=== PATIENT | female | born 1950 | race Caucasian/White ===

== ENCOUNTER → 2016-12-11 | Outpatient (CLI) | payer MEDICARE, OTHER ==
[~2016-12-11] MED LIST: ALBU6.7H4 IH; FLUT1DIS IH; MONT10TA15 PO
--- NOTE | 2016-12-11 13:20 | DI ---
Indication: ITS.REASON: R53.83 FATIGUE; R63.0; C50.919; R74.8; R63.4 PROCEDURE: NM BONE SCAN, WHOLE BODY: Encounter: Subsequent Comparison: None Technique: 27.3 mCi of Tc-99m MDP was administered intravenously. Anterior and posterior planar whole-body and spot images were obtained. FINDINGS: The scan demonstrates the expected normal biodistribution for the radiotracer. There is homogeneous uptake of the radiopharmaceutical throughout the axial and appendicular skeleton and bony calvarium with the exception of degenerative uptake in the shoulder and knee joints bilaterally. There is no abnormal radiotracer uptake to suggest bony metastasis. There is symmetrical uptake in the region of the kidneys bilaterally. There is mild S shaped scoliosis of the thoracolumbar. IMPRESSION: 1. No evidence of metastatic disease to the skeleton. 2. Degenerative uptake is seen in the shoulder and knee joints bilaterally. 3. Mild S shaped scoliosis of the thoracolumbar spine. .
== END ==
LOC: IMA 09:29
PROVIDERS: ATTEND Physician Assistant
DX: M89.8X1 Other specified disorders of bone, shoulder (principal); M89.8X6 Other specified disorders of bone, lower leg; Z85.3 Personal history of malignant neoplasm of breast; R53.83 Other fatigue; R63.0 Anorexia; R74.8 Abnormal levels of other serum enzymes; R63.4 Abnormal weight loss

== ENCOUNTER → 2016-12-23 | Outpatient (CLI) | payer MEDICARE, OTHER ==
[~2016-12-23] MED LIST changes: +IOHEXOL 300 MG/ML 100ml INJECTION ONE; +NORMAL SALINE 100 ML ONE; +ONDA-55 PO; +SALINE FLUSH 10ml SYRINGE ONE
--- NOTE | 2016-12-23 12:30 | DI ---
Indication: ITS.REASON: R53.83 FATIGUE, R63.0 ANOREXIA, R63.4 ABNORMAL WEIGHT LOSS PROCEDURE: CT ABD/PELVIS W/CONTRAST ONLY: Encounter: Initial Comparison: None Technique: Axial CT images were performed through the abdomen and pelvis after the administration of intravenous contrast. Coronal and sagittal two-dimensional reformats. Automated Exposure Control and Iterative Reconstruction dose reducing techniques were utilized. Contrast: Omnipaque 300 98 mL Findings: CT ABDOMEN: There is patchy somewhat reticulonodular and groundglass opacities in both lung bases with both anterior and posterior distribution. Heart size is normal. No pleural effusion. The liver, spleen, kidneys, pancreas, and adrenal glands are normal. The gallbladder is thin-walled and nondistended. There is at least one large laminated gallstone in the gallbladder fundus. The abdominal aorta is nonaneurysmal with scattered calcific atherosclerotic disease. There is no retroperitoneal or mesenteric adenopathy. CT PELVIS: The uterus is unremarkable. There is no pelvic sidewall adenopathy. No free fluid. No definite bony destructive process. IMPRESSION: Cholelithiasis without evidence for cholecystitis. Nonspecific patchy interstitial parenchymal changes in both lung bases. No evidence for infectious or inflammatory process. No evidence for mass or adenopathy. .
== END ==
LOC: IMA 07:24
PROVIDERS: ATTEND Physician Assistant
DX: K80.20 Calculus of gallbladder without cholecystitis without obstruction (principal); R91.8 Other nonspecific abnormal finding of lung field; R53.83 Other fatigue; R63.0 Anorexia; R63.4 Abnormal weight loss; R11.0 Nausea
CPT/HCPCS: 74177; J7050; Q9967

== ENCOUNTER 2017-01-01 06:42 | Day surgery (SDC) | payer MEDICARE, OTHER ==
[~2017-01-01] VITALS: Ht 182.9 cm; Wt 66.7 kg
[~2017-01-01 06:42] MED LIST changes: -IOHEXOL 300 MG/ML 100ml INJECTION ONE; -NORMAL SALINE 100 ML ONE; -SALINE FLUSH 10ml SYRINGE ONE
[2017-01-01 06:46] VITALS: BP 120/81; PULSE 101; RESP 16; TEMP 98.4; O2SAT 93; Ht 182.9 cm; Wt 66.7 kg
[2017-01-01] MEDS ORDERED: LIDOCAINE 1% (10mg/ml) 2ml SDV INJ ONE (07:00)
[2017-01-01] MEDS ORDERED: LR 1,000 ML IV SCH (07:00)
--- NOTE | 2017-01-01 07:35 | ANESPREOP ---
Anesthesia Record Date and Time DATE: 01/01/17 TIME: 07:30 Pre-Op Diagnosis anemia, nausea, weight loss Proposed Surgical Procedure EGD NPO since: [place] Allergies: Coded Allergies: Penicillins (Verified Allergy, Mild, RASH, 12/31/16) Sulfa (Sulfonamide Antibiotics) (Verified Allergy, Mild, RASH, 12/31/16) gatifloxacin (Verified Allergy, Unknown, 12/31/16) Uncoded Allergies: FLU SHOTS (Adverse Reaction, Unknown, 04/24/10) Ht/Wt/BMI Height: 6 ' 0.00 " Weight: 66.700 kg BMI: 19.9 kg/m2 Vital Signs Date Time Temp Pulse Resp B/P Pulse Ox O2 Delivery O2 Flow Rate FiO2 01/01/17 06:46 98.4 101 16 120/81 93 Room Air Medications Inpatient Medications Current Medications Medications (Trade) Dose Ordered Sig/Artem Start Time Stop Time Status Last Admin Dose Admin Lactated Ringer's (Lactated Ringers) 1,000 ml @ 50 mls/hr Q20H 01/01/17 07:00 01/01/17 07:14 50 MLS/HR Albuterol Sulfate (Proventil Hfa) 6.7 Gm Hfa.aer.ad, 6.7 GM IH PRN, (Reported) Last Taken: on Unknown Date & Time Fluticasone/Salmeterol (Advair 100/50 Diskus) 1 Disk W/Dev Inhaler, 1 DISK IH BID, (Reported) Last Taken: on 12/31/162099 Montelukast Sodium (Singulair) 10 Mg Tablet, 10 MG PO DAILY, (Reported) Last Taken: on 12/31/162099 Ondansetron HCl (Ondansetron HCl) 4 Mg Tablet, 1 TAB PO DAILY PRN for NAUSEA, (Reported) Last Taken: on 12/30/16 0800 Currently on Beta Silvia: No Medical/Surgical History Anesthesia PMH: Reports: Arthritis (MULTIPLE JOINTS), Asthma, Cancer (BREAST- KENDY), Denies: *Diabetes, Anesthesia Reactions (NO AIRWAY ISSUES,N&V), Blood Transfusion Reac, Clotting Problems, Glaucoma, Malignant Hyperthermia, Pneumonia , Sleep Apnea Smoking Status: Former smoker Use Chewing Tobacco?: No Second Hand Exposure: No Substance Use Type: does not use Alcohol Intake: none HX of Last Menstrual Period: 1996 Past Surgical History Orthopedic Surgeries: Abdominal Surgeries: Genitourinary Surgeries: Cardiac Surgeries: Endocrine Surgeries: Reproductive Surgeries: - D&C X2 Neurological Surgeries: Ear Surgeries: Nose Surgeries: Throat Surgeries: - T&A Other Surgeries: - KENDY. MASTECTOMY X 2 Anesthesia Adverse Reactions: FOUND other (vision loss after anesthesia) Family Hx of Anesthesia Advers: none Hx of Motion Sickness: Yes Pertinent Findings EKG Rhythm: Sinus Rhythm Physical Exam Respiratory: Lungs clear Cardiovascular: FOUND Regular rate, rhythm, FOUND No murmur Airway Assessment Mallampati Score: III TMD: 2 Fingerbreadths Overall Assessment: May Be Diff Intubation ASA: 2 Plan Anesthesia Plan: TIVA Discussion Discussed risks/options/alternatives of anesthesia and questions answered. Patient consents. Nursing pain assessment noted. Present: Spouse Attestation Statement Prior to the delivery of any anesthetic medication, I examined the patient, developed the plan, obtained the patient's consent and discussed the risk and benefits of the procedure with the patient/guardian. JACOB SINGER CRNA January 01, 2017 07:33
[2017-01-01] MEDS ORDERED: LIDOCAINE VISCOUS 2% Oral Soln 15ml UD ONE (08:21)
[2017-01-01] MEDS ORDERED: PROPOFOL 200mg 20 ML IV ONE ×2 (08:27→08:46)
[2017-01-01] MEDS ORDERED: ALFENTANIL 500mcg/ml - 2ml INJECTION ONE (08:27)
[2017-01-01] MEDS ORDERED: LIDOCAINE (2%) 100 MG/5 ML PF SYRINGE IV ONE (08:28)
[2017-01-01] MEDS ORDERED: DEXAMETHASONE 4mg/ml - 1ml INJECTION ONE (09:01)
[2017-01-01 09:03] VITALS: BP 99/52; PULSE 84; RESP 16; TEMP 99.3; O2SAT 92
[2017-01-01 09:10] VITALS: BP 118/66; PULSE 89; RESP 15; O2SAT 92
--- NOTE | 2017-01-01 09:19 | ANESPO ---
Post-Op Note Date 01/01/17 Time: 09:19 Status Pt Participated in Evaluation: Pt participated in person Vital Signs Date Time Temp Pulse Resp B/P Pulse Ox O2 Delivery O2 Flow Rate FiO2 01/01/17 09:03 99.3 84 16 99/52 92 Room Air Respiratory Function: Airway patent, Regular respirations Cardiovascular Function: Regular pulse Telemetry Pattern: SR Mental Status: Alert/oriented Pain Level Intensity: 0 Hydration: Taking po fluids Complications during Recovery None apparent Follow-Up Instructions Instructions Per Surgeon JACOB SINGER CRNA January 01, 2017 09:19
[2017-01-01 09:20] VITALS: BP 119/66; PULSE 81; RESP 17; O2SAT 92
[2017-01-01 09:30] VITALS: BP 120/68; PULSE 75; RESP 16; O2SAT 92
--- NOTE | 2017-01-01 16:28 | OPNOTEF ---
DATE OF OPERATION 01/01/2017 PREOPERATIVE DIAGNOSIS Weight loss, anemia and nausea. POSTOPERATIVE DIAGNOSIS 1. Gastritis, hemorrhagic, in the cardia and fundus. 2. Duodenitis, granular. 3. Focal areas of gastritis in the lower body of the stomach. 4. Distal esophagitis at the EG junction. OPERATION Esophagogastroduodenoscopy with biopsies of the duodenum, biopsy of the antrum for JONAS testing. Biopsy of two focal are as of gastritis in the lower body of the stomach. Multiple biopsies taken from then cardia and fundus area where she had what appeared to be a hemorrhagic gastritis and biopsy of focal area of inflammatory change just at the EG junction at 48 cm. SURGEON Richard Mendoza M.D. DESCRIPTION OF OPERATIVE PROCEDURE The patient was placed in the left lateral position. The gastroscope was introduced into the esophagus and advanced into the second portion of the duodenum. The duodenal mucosa appeared somewhat edematous and granular with no evidence of hemorrhage or ulceration. Several biopsies were taken of the duodenum for pathology. The scope was then pulled back through the pyloric channel which was unremarkable into the stomach. The antrum showed minimal inflammatory changes with biopsy taken for JONAS testing from the antrum. Just above the antrum and superior to the angularis, patient had several focal areas of gastritis with both of these biopsied. No jeancarlos ulcerations or mass lesions were noted. Scope was retroflexed with the cardia and fundus remarkable for a granular hemorrhagic inflamed appearance with multiple biopsies taken from this area. The stomach was suctioned. The scope was pulled back into the esophagus with the EG junction noted at 48 cm. There was a focal area of inflammatory change just at the EG junction which was biopsied for pathology. The remainder of the esophagus showed no significant lesions or stenosis. The posterior pharynx and vocal cords were unremarkable. The scope was removed, with patient tolerating the procedure well. Follow up as indicated by biopsies. MTDD
== END 2017-01-01 09:46 | disposition home or self-care (01) ==
LOC: NSC 06:42
DX: K29.31 Chronic superficial gastritis with bleeding (principal); K29.80 Duodenitis without bleeding; K20.8 Other esophagitis; D64.9 Anemia, unspecified; R63.4 Abnormal weight loss; J45.909 Unspecified asthma, uncomplicated; Z79.899 Other long term (current) drug therapy; Z87.891 Personal history of nicotine dependence; Z90.13 Acquired absence of bilateral breasts and nipples
CPT/HCPCS: 43239; 87081; J1100; J2704; J7120; 88305

== ENCOUNTER → 2017-01-13 | Outpatient (CLI) | payer MEDICARE, OTHER ==
[~2017-01-13] MED LIST changes: +IOHEXOL 300 MG/ML 75ml INJECTION ONE; +NORMAL SALINE 100 ML ONE; +SALINE FLUSH 10ml SYRINGE ONE
--- NOTE | 2017-01-13 11:33 | DI ---
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 Coronal and sagittal two-dimensional reformats. Automated Exposure Control and Iterative Reconstruction dose reducing techniques were utilized. Contrast: Omnipaque 300 73 mL Findings: Bilateral apical pleural thickening and scarring. Multifocal groundglass opacities with a peripheral predominance scattered throughout both lungs smaller multifocal areas of consolidation seen in the superior segments of both lower lobes no pleural effusion or pneumothorax. The central airways are patent. No axillary or mediastinal adenopathy. Prior mastectomies. Thyroid gland appears normal. Heart size is normal. No pericardial effusion. Great vessels are unremarkable. The upper abdomen shows no acute findings. Impression: Multifocal groundglass opacities scattered throughout the lungs with a peripheral predominance. Findings could be due to hypersensitivity pneumonitis/drug reaction. Other causes include eosinophilic pneumonia, organizing pneumonia and pulmonary vasculitis. The appearance would be very unusual for metastatic disease. .
--- NOTE | 2017-01-14 21:34 | ECHOF ---
DATE OF STUDY 01/14/2017 INDICATIONS Breast cancer - undergoing chemotherapy, potentially cardiotoxic. This is to assess LVEF for patient's oncologist, Dr. Galileo Keating. TECHNICAL QUALITY Technically good 2D, M-mode, Doppler echocardiographic images were submitted for interpretation. FINDINGS 1. CARDIAC CHAMBERS: All cardiac chamber measurements are normal. The aortic root diameter is normal. RV size and contractility appear normal. . 2. LEFT VENTRICLE: Wall thickness is normal. Wall motion analysis is normal. Systolic function is normal. EF measures 68% - visually estimated about 60%. Diastolic function parameters are normal. 3. VALVES: Aortic valve is trileaflet and exhibits minimal sclerosis. Mitral valve exhibits minimal sclerosis. Valve excursion is normal for patient's age. Tricuspid valve structure and motion appear normal. Normal valve excursion. 4. DOPPLER: Trace aortic regurgitation and trace pulmonary insufficiency. Normal flow velocities throughout. 5. Normal central venous pressure. 6. No evidence of pericardial effusion, intracardiac masses or demonstrable shunts. IMPRESSION Other than mild sclerotic changes in aortic and mitral valves, normal for patient's age, with only very mild aortic regurgitation, unremarkable echocardiogram with normal LV size and systolic function. Ejection fraction is about 60%. MTDD
== END ==
LOC: IMA 09:18
PROVIDERS: ATTEND Internal Medicine Hematology & Oncology
DX: C50.411 Malignant neoplasm of upper-outer quadrant of right female breast (principal); Z79.899 Other long term (current) drug therapy; R91.8 Other nonspecific abnormal finding of lung field; I08.0 Rheumatic disorders of both mitral and aortic valves
CPT/HCPCS: 71260; 93306; J7050; Q9967

== ENCOUNTER → 2017-01-23 | Outpatient (CLI) | payer MEDICARE, OTHER ==
[~2017-01-23] VITALS: Ht 182.9 cm; Wt 63.6 kg
[~2017-01-23] MED LIST changes: -IOHEXOL 300 MG/ML 75ml INJECTION ONE; -NORMAL SALINE 100 ML ONE; -SALINE FLUSH 10ml SYRINGE ONE
== END ==
LOC: RC 09:57
PROVIDERS: ATTEND Internal Medicine Sleep Medicine
DX: R91.8 Other nonspecific abnormal finding of lung field (principal); R94.2 Abnormal results of pulmonary function studies
CPT/HCPCS: 94060; 94726

== ENCOUNTER 2018-03-23 15:32 | Observation (INO) ==
[2018-03-23] MEDS ORDERED: NITROGLYCERIN 0.4 MG SUBLINGUAL TABLET SL PRN (15:41)
[2018-03-23] MEDS ORDERED: ASPIRIN 81 MG CHEWABLE TABLET PO ONE (15:41)
[2018-03-23] MEDS ORDERED: SALINE FLUSH 10ml SYRINGE IVF PRN (15:41)
--- NOTE | 2018-03-23 15:53 | Emergency Department Report ---
Chest Pain HPI - General Chief Complaint: Chest Pain Stated Complaint: Cardiac Time Seen by Provider: 03/23/18 15:53 Source: patient Mode of arrival: ambulatory Limitations: no limitations - History of Present Illness HPI narrative: Patient is a 67-year-old female presents the ER for evaluation of EKG changes, weakness. Patient's had intermittent chest pain for several weeks, also been complaining of diarrhea and increasing weakness, patient went to [facility] due to the EKG changes patient was referred to the ER for evaluation. - Related Data Home Medications Medication Instructions Recorded Confirmed Albuterol Sulfate [Proventil Hfa 2 puff INH Q4H PRN 04/09/18 04/17/18 90mcg] Aspirin [Adult Aspirin] 81 mg PO HS 04/09/18 04/17/18 Fluticasone/Salmeterol 250/50 1 puff INH BID 04/09/18 04/17/18 [Advair 250-50 Diskus] Montelukast [Singulair] 10 mg PO HS 04/09/18 04/17/18 Previous Rx's Medication Instructions Recorded prednisone 10 mg tablet 20 mg PO DAILY #40 tab 04/14/18 Allergies Allergy/AdvReac Type Severity Reaction Status Date / Time Penicillins Allergy Mild RASH Verified 04/14/18 14:00 Sulfa (Sulfonamide Allergy Mild RASH Verified 04/14/18 14:00 Antibiotics) gatifloxacin Allergy Unknown Verified 04/14/18 14:00 Influenza Virus Vaccines Allergy Verified 04/14/18 14:00 Review of Systems Constitutional: Reports: weakness. Denies: fever, chills ENT: Denies: ear pain, throat pain, dental pain Cardiovascular: Reports: chest pain. Denies: palpitations, dyspnea on exertion Respiratory: Denies: cough, dyspnea, wheezes Gastrointestinal: Reports: nausea, diarrhea. Denies: abdominal pain, vomiting Integumentary: Denies: erythema, lesions, rash Neurological: Reports: weakness (generalized nonspecific). Denies: headache Hematological/Lymphatic: Denies: easy bleeding Allergic/Immunologic: Denies: facial swelling PFSH Patient Stated Medical History Heart Murmur Yes Clinic Medical History (Last Updated 09/30/17 @ 08:50 by PARKER Jeffries) Allergic asthma (Chronic Medical) Basal cell carcinoma of back (Chronic Medical) Breast CA (Chronic Medical) Hx of tamoxifen therapy (Chronic Medical) Surgical History: T&A-1958. Mastectomy on L-1995. D&C x 2. Mastectomy on R- 2004. Tamoxifen for 5 years. R was removed later due to another breast cancer in 2010. (No chemo after Family History: Family History (Last Updated 09/30/17 @ 08:53 by PARKER Jeffries) Father , 78 Myelofibrosis Mother , 82 Polycythemia vera Maternal Uncle Rectal cancer Maternal Aunt Cancer of blood vessel - Social History Smoking status: Former smoker Substance use type: does not use Alcohol intake frequency: does not drink Physical Exam - General General appearance: alert, in no apparent distress - Head Head exam: normocephalic, normal inspection - Eye Eye exam: Present: PERRL - ENT ENT exam: Present: normal oropharynx, mucous membranes moist, TM's normal bilaterally - Neck Neck exam: Present: trachea midline. Absent: tenderness - Chest Chest inspection: Present: symmetric chest wall rise. Absent: tenderness, rash - Respiratory Respiratory exam: Present: normal lung sounds bilaterally. Absent: respiratory distress, wheezes, stridor - Cardiovascular Cardiovascular exam: Present: regular rate, normal rhythm, normal heart sounds - Abdominal Exam Abdominal exam: Present: soft, normal bowel sounds. Absent: distention, tenderness - Skin Skin exam: Present: warm, dry - Neurological Exam Neurological exam: Present: alert, oriented X3 - Psychiatric Psychiatric exam: Present: normal affect, normal mood Course Vital Signs Temperature 99.8 F 03/23/18 15:32 Pulse Rate 80 03/23/18 15:32 Respiratory Rate 22 03/23/18 15:32 Blood Pressure 144/90 H 03/23/18 15:32 Pulse Oximetry 93 03/23/18 15:32 Temperature 97.5 F 03/24/18 12:32 Pulse Rate 83 03/24/18 15:21 Respiratory Rate 16 03/24/18 12:32 Blood Pressure 139/74 03/24/18 12:32 Pulse Oximetry 92 03/24/18 12:32 Chest Pain - MDM Narrative Medical decision making narrative: Patient's troponin slightly above normal discuss case with Dr. Chávez he will admit patient - Medical Records Data Attestation: I reviewed the patient's medical records. - Lab Data Attestation: I reviewed the patient's lab results. Result diagrams: 03/24/18 06:24 03/24/18 06:24 Lab Results 03/23/18 03/23/18 03/23/18 Range/Units 14:20 14:20 14:20 WBC 18.6 H (4.5-11.0) T/MM3 RBC 4.91 (4.00-5.20) M/MM3 Hgb 13.6 (12-16) GM/DL Hct 42.8 (36-46) % MCV 87.2 (80-100) UM3 MCH 27.7 (26-34) UUG MCHC 31.8 (31-37) GM/DL RDW Std Deviation 40.3 (36.9-50.2) FL Plt Count 338 (130-400) T/MM3 MPV 11.3 (9.4-12.4) UM3 Immature Gran % (Auto) Not performed Neut % (Auto) Not performed Lymph % (Auto) Not performed Ford % (Auto) Not performed Eos % (Auto) Not performed Baso % (Auto) Not performed Neut # (Auto) Not performed Lymph # (Auto) Not performed Ford # (Auto) Not performed Eos # (Auto) Not performed Baso # (Auto) Not performed Abs Immat Gran (auto) Not performed Neutrophils % (Manual) 32.0 L (33-66) % Band Neutrophils % 1.0 (0-6) % Lymphocytes % (Manual) 16.0 L (23-45) % Monocytes % (Manual) 7.0 (0-9.0) % Eosinophils % (Manual) 44.0 H (0-4) % Neutrophils # (Manual) 6.0 (1.8-7.7) T/MM3 Band Neutrophils # 0.2 T/MM3 Lymphocytes # (Manual) 3.0 (1-4.8) T/MM3 Monocytes # (Manual) 1.3 H (0-0.8) T/MM3 Eosinophils # (Manual) 8.2 H (0-0.5) T/MM3 RBC Morph Comment Normal D-Dimer 670 H (0-230) NG/ML Turbidity < 20 (0-20) Sodium 143 (136-146) MEQ/L Potassium 4.4 (3.6-5) MEQ/L Chloride 103 (98-107) MEQ/L Carbon Dioxide 29 (22-30) MEQ/L Anion Gap 11 (5-15) meq/L BUN 11.0 (7-17) MG/DL Creatinine 0.9 (0.7-1.2) mg/dL GFR Calculation 62 BUN/Creatinine Ratio 12 (6-26) RATIO Glucose 107 (65-110) MG/DL Calculated Osmolality 274 (261-280) MOSM/KG Calcium 9.5 (8.4-10.2) MG/DL Magnesium 2.3 (1.6-2.3) MG/DL Total Bilirubin 0.40 (0.20-1.30) MG/DL Icterus Index < 2 (0-7) AST 56 H (14-36) U/L ALT 38 H (1-35) U/L Alkaline Phosphatase 422 H (38-126) U/L Troponin I 0.146 H (0-0.12) ng/ml C-Reactive Protein (0-9) mg/L NT-Pro-B Natriuret Pep 196 H (0-175) pg/mL Total Protein 9.2 H (6.3-8.2) g/dL Albumin 4.3 (3.5-5.0) g/dL Globulin 4.9 H (2.4-3.6) G/DL Albumin/Globulin Ratio 0.9 L (1.1-2.2) RATIO TSH 1.38 (0.47-4.68) mIU/L Specimen Hemolysis < 15 (0-25) //18 Range/Units 14:20 WBC (4.5-11.0) T/MM3 RBC (4.00-5.20) M/MM3 Hgb (12-16) GM/DL Hct (36-46) % MCV (80-100) UM3 MCH (26-34) UUG MCHC (31-37) GM/DL RDW Std Deviation (36.9-50.2) FL Plt Count (130-400) T/MM3 MPV (9.4-12.4) UM3 Immature Gran % (Auto) Neut % (Auto) Lymph % (Auto) Ford % (Auto) Eos % (Auto) Baso % (Auto) Neut # (Auto) Lymph # (Auto) Ford # (Auto) Eos # (Auto) Baso # (Auto) Abs Immat Gran (auto) Neutrophils % (Manual) (33-66) % Band Neutrophils % (0-6) % Lymphocytes % (Manual) (23-45) % Monocytes % (Manual) (0-9.0) % Eosinophils % (Manual) (0-4) % Neutrophils # (Manual) (1.8-7.7) T/MM3 Band Neutrophils # T/MM3 Lymphocytes # (Manual) (1-4.8) T/MM3 Monocytes # (Manual) (0-0.8) T/MM3 Eosinophils # (Manual) (0-0.5) T/MM3 RBC Morph Comment D-Dimer (0-230) NG/ML Turbidity (0-20) Sodium (136-146) MEQ/L Potassium (3.6-5) MEQ/L Chloride (98-107) MEQ/L Carbon Dioxide (22-30) MEQ/L Anion Gap (5-15) meq/L BUN (7-17) MG/DL Creatinine (0.7-1.2) mg/dL GFR Calculation BUN/Creatinine Ratio (6-26) RATIO Glucose (65-110) MG/DL Calculated Osmolality (261-280) MOSM/KG Calcium (8.4-10.2) MG/DL Magnesium (1.6-2.3) MG/DL Total Bilirubin (0.20-1.30) MG/DL Icterus Index (0-7) AST (14-36) U/L ALT (1-35) U/L Alkaline Phosphatase (38-126) U/L Troponin I (0-0.12) ng/ml C-Reactive Protein 23.9 H (0-9) mg/L NT-Pro-B Natriuret Pep (0-175) pg/mL Total Protein (6.3-8.2) g/dL Albumin (3.5-5.0) g/dL Globulin (2.4-3.6) G/DL Albumin/Globulin Ratio (1.1-2.2) RATIO TSH (0.47-4.68) mIU/L Specimen Hemolysis (0-25) - Radiology Data Attestation: I reviewed the patient's radiology results. Chest x-ray: No acute cardiopulmonary findings CTA: Mucous plugging hilar fullness no definite infiltrate no sign of pulmonary embolus - EKG Data EKG #1 EKG attestation: Yes: I reviewed and interpreted this EKG. EKG shows normal: sinus rhythm Rate: normal Rhythm: NSR White/QRS: left axis deviation Interpretation: no acute changes Disposition Clinical Impression: Elevated troponin Disposition: 02 To OBS [facility] [place] Condition: Stable - Seen By: physician
[2018-03-23] MEDS ORDERED: SALINE FLUSH 10ml SYRINGE ONE (16:39)
[2018-03-23] MEDS ORDERED: IOHEXOL 350mg/ml 75ml INJECTION ONE (16:39)
--- NOTE | 2018-03-23 17:09 | CT Scan Report ---
Indication: weakness shortness of air elevated d-dimer PROCEDURE: CT angio pulm emboli: Encounter: Initial Comparison: None. Technique: Following rapid administration of intravenous contrast, multiple contiguous helical axial slices were obtained from the level of the diaphragm to the level the thoracic inlet. This volumetric data set then served as the basis for further 2 dimensional MIP reconstructions in sagittal and coronal planes. Automated Exposure Control and Iterative Reconstruction dose reducing techniques were utilized. FINDINGS: There is fairly extensive somewhat patchy predominant interstitial appearing parenchymal opacities with diffuse distribution. There is some thickening of the bronchi with segmental occlusions suggesting inspissated mucus and probable bronchitis and there is also some bronchiectasis in the lung bases. No definite organizing fibrosis or honeycombing. The lungs are mildly emphysematous with some mosaic air trapping particularly in the lung bases. There is bilateral hilar prominence without definite jeancarlos pathologic enlargement which could be reactive. There is no pulmonary embolism. The trachea and mainstem bronchi are patent. There is no consolidation, pleural effusion, or pneumothorax. There are no masses or nodules seen in the lung parenchyma. There is no axillary or mediastinal lymphadenopathy. The heart size is normal. There is no pericardial effusion. The visualized portions of the thoracic aorta and major branch vessels of the aortic arch fills with contrast homogenously and are unremarkable. The thyroid gland enhances homogenously and is unremarkable. The visualized portions of the upper abdominal structures are grossly unremarkable. The visualized bones are unremarkable. IMPRESSION: Scattered patchy air trapping with nonspecific interstitial opacities and bronchial wall thickening predominantly in the lung bases with segmental occlusion suggesting inspissated mucus. Bilateral hilar prominence which could be reactive without definite pathologic enlargement. No definite pulmonary embolus. Exam was interpreted using CTA criteria adapted to NASCET criteria. .
[2018-03-23 18:17] VITALS: BMI 18.6
--- NOTE | 2018-03-23 18:31 | History & Physical Report ---
History of Present Illness Date: 03/23/18 Chief complaint: Fatigue HPI: Pippa Cedillo is a 67 y/o female who saw Deena Schwarz at [facility] today to investigate intermittent diarrhea, fatigue, and tiredness for the last month. She tends to have more diarrhea when she's anxious and her reports that she has been under mores stress/been more anxious lately. She also notes anorexia, without n/v. She denies seeing jeancarlos red or black colored stools. She denies dizziness/near-syncope. She denies bloating or cramping or abdominal pain. She has lost about 8 lbs in the last month. Along with this she's experienced increased fatigue - i.e. after she folds a load of laundry she needs to go rest. She has noted some labored breathing with activity, but not SOA per se. She saw Dr. Donohue last week for "shadows on my lungs" and had her Advair dose reduced d/t side effects of headaches and intermittent visual loss, both of which have resolved. Her also mentioned that she sometimes c/o jaw pain. Her allergy symptoms are under control. She denies chest pain, palpitations, urinary pain (though notes concentrated urine today), rashes, infections, recent travel, known exposures. An EKG was done in the office, and this was abnormal so she was referred to the ED. There, trop was mildly elevated at 0.146. D-dimer was 670 and a CTA was done, which was neg for PE. Dr. Mcpherson was consulted from the ED and felt that the troponinemia was secondary to LVH. The patient also had leukocytosis with a WBC of 18.6 and mild transaminitis. The hospitalist service was contacted and the patient was admitted to obs status. Review of Systems All systems PM: 10-point ROS was reviewed, no additional remarkable complaints except - Constitutional Constitutional: Present: as per HPI - EENMT Eyes: Present: as per HPI Nose: Present: as per HPI Mouth/Throat: Absent: sore throat - Cardiovascular Cardiovascular: Present: as per HPI Vascular: Present: see HPI. Absent: pedal edema - Respiratory Respiratory: Present: as per HPI - Gastrointestinal Gastrointestinal: Present: as per HPI - Genitourinary Genitourinary: Present: as per HPI - Musculoskeletal Musculoskeletal: Absent: back pain, myalgias - Integumentary/Breasts Integumentary: Present: as per HPI - Neurological Neurological: Present: as per HPI - Psychiatric Psychiatric: Present: as per HPI - Endocrine Endocrine: Present: as per HPI - Hematologic/Lymphatic Hematologic/Lymphatic: Absent: easy bleeding - Allergic/Immunologic Allergic/Immunologic: Present: seasonal rhinorrhea Past Medical History Medical History: Medical History (Last Updated 09/30/17 @ 08:50 by PARKER Jeffries) Allergic asthma Basal cell carcinoma of back Breast CA Hx of tamoxifen therapy Surgical History: T&A-195. Mastectomy on L-1995. D&C x 2. Mastectomy on R- 2004. Tamoxifen for 5 years. R was removed later due to another breast cancer in 2010. (No chemo after Family History: Family History (Last Updated 09/30/17 @ 08:53 by PARKER Jeffries) Father , 78 Myelofibrosis Mother , 82 Polycythemia vera Maternal Uncle Rectal cancer Maternal Aunt Cancer of blood vessel Family History Updates: Both of her parents of "blood cancer". No family history of heart disease. 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 Medications Home Medications Medication Instructions Recorded Confirmed Type Albuterol Sulfate [Proventil Hfa 6.7 gm IH PRN #0 04/25/10 03/23/18 History 90mcg] Advair Diskus (Fluticasone 250 1 puff INH BID 03/23/18 03/23/18 History mcg-salmeterol 50 mcg)dose powdr for inhalation Montelukast Sodium [Singulair] 10 mg PO HS 03/23/18 03/23/18 History Allergies Allergy/AdvReac Type Severity Reaction Status Date / Time Penicillins Allergy Mild RASH Verified 03/23/18 13:29 Sulfa (Sulfonamide Allergy Mild RASH Verified 03/23/18 13:29 Antibiotics) gatifloxacin Allergy Unknown Verified 03/23/18 13:29 FLU SHOTS Allergy Unknown welts Uncoded 03/23/18 13:29 Exam Vital Signs: Temperature 97.6 F 03/23/18 18:00 Pulse Rate 80 03/23/18 18:19 Respiratory Rate 18 03/23/18 18:00 Blood Pressure 142/91 H 03/23/18 18:00 Pulse Oximetry 95 03/23/18 18:00 Telemetry Rhythm: Sinus Rhythm Height/Weight/BMI: Height 1.83 m Weight 62.1 kg Body Mass Index 18.6 - Constitutional Present: no acute distress, well nourished, well developed, thin - Routine HEENT Exam Head: Present: normocephalic Eye: Present: PERRL. Absent: conjunctival icterus, scleral injection ENT: Present: mucous membranes dry - Routine Neck Exam Present: supple. Absent: lymphadenopathy - Routine Respiratory Exam Present: CTA bilaterally - Routine Cardiovascular Exam Present: RRR, S1, S2 - Routine Abdominal Exam Present: soft, normoactive bowel sounds, non distended, non tender - Routine Extremities Exam Present: no edema, pulses intact, normal capillary refill. Absent: calf tenderness - Routine Skin Exam Present: intact, dry, warm - Routine Neurological Exam Present: alert, oriented X3, CN II-XII intact, moving all extremities, vision grossly intact, hearing grossly intact, normal speech. Absent: sensory deficit , motor deficit, altered mental status, facial asymmetry - Routine Psychiatric Exam Present: normal affect, normal thought process, cooperative Results - Labs CBC & Chem 7: 03/23/18 14:20 03/23/18 14:20 - ECG Data Tracing #2 I reviewed this ECG and interpreted as documented below: Sinus arrhythmia with LVH - Imaging and Cardiology CT scan - chest Status: image reviewed by me Additional comments: IMPRESSION: Scattered patchy air trapping with nonspecific interstitial opacities and bronchial wall thickening predominantly in the lung bases with segmental occlusion suggesting inspissated mucus. Bilateral hilar prominence which could be reactive without definite pathologic enlargement. No definite pulmonary embolus. Assessment and Plan (1) Elevated troponin I level Current visit: Yes Status: Acute Assessment and Plan: Assessment Elevated troponin LVH on EKG Leukocytosis, POA Transaminitis Leukocytosis/eosinophilia Anorexia, weight loss Diarrhea Fatigue Hx of breast ca Allergic asthma Plan Admit, obs status Trend trop; monitor tele. WBC elevated; shift shows predominantly eosinophils. No clear signs of bacterial illness. If pt has diarrhea will send for GI panel. Check UA for completeness. IVF: 1/2 NS at 100 ml/hr. Albuterol PRN. Consider further w/u for transaminitis/eosinophilia. TSH was normal at 1.38. Discussed with Dr. Gudino. DVT Prophylaxis: SCD's Resuscitation Status: Full Code - Physician Narrative Physician: Gladys Gudino MD Narrative: Date: 03/23/18 Time: 2029 I have independently evaluated and examined this patient. I reviewed the chart, the patient's history, and the SPEARER/PA's documented findings as above. We discussed and formulated the assessment and plan as above with additions as below: Mrs. Cedillo is 68-year-old female who was seen in her primary care providers office today for nonspecific symptoms including fatigue where she was found to have an abnormal EKG and referred to the emergency room. She specifically denies chest pain or palpitations. She has asthma which is well controlled and has never been told she has eosinophilia. In the ER d-dimer and troponin were mildly elevated; CTA was obtained and was negative for PT and she is subsequently hospitalized for serial troponins. No cardiac risk factors. Patient is alert and in no acute distress. Blood pressures 118/75-146/79 since arrival. Respirations are nonlabored with good airflow, clear breath sounds Regular cardiac rhythm, S1 and S2. CTA reviewed by myself demonstrating no PE however patchy interstitial "fluffy "peripheral opacities in the lower airfields; radiology report some inspissated mucus and probable bronchitis and there is also some bronchiectasis in the lung bases and bilateral hilar prominence. Chest x-ray also reviewed by myself demonstrating hyperinflated lungs with flattened diaphragms, normal heart size. EKG reviewed by myself-sinus rhythm with marked changes of LVH and secondary ST/ T changes Troponin 0.146-0.22 Leukocytosis with eosinophilia noted, liver enzymes abnormal Serial troponins will be obtained, Dr. Mcpherson consulted. Patient has clear LVH on EKG but no history of hypertension; heart is normal size on chest x-ray and CTA. Unclear why LVH present on EKG. Also unclear why the patient has eosinophilia and leukocytosis. ?Vasculitis. CRP elevated. No serologies previously sent within the [place] [employer] system[facility] in a.m. Urine eosinophils to be obtained although unlikely to be of benefit. 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 Hospital Course Summary Disclaimer: The visit summary below is not to be considered part of the above Progress Note. Hospital Course: 03/23 Admit, obs status Trend trop; monitor tele. WBC elevated; shift shows predominantly eosinophils. No clear signs of bacterial illness. If pt has diarrhea will send for GI panel. Check UA for completeness. IVF: 1/2 NS at 100 ml/hr. Albuterol PRN. Consider further w/u for transaminitis/eosinophilia. TSH was normal at 1.38.
[2018-03-23] MEDS ORDERED: ALBUTEROL 2.5mg/0.5ml (0.5%) NEB AEROSOL PRN (18:38)
[2018-03-23] MEDS: 1/2 NS 1,000 ML IV SCH (19:29)
[2018-03-23] MEDS ORDERED: MONTELUKAST 10 MG TABLET PO SCH (21:00)
[2018-03-23] MEDS: ARFORMOTEROL NEB 15mcg/2ml AEROSOL SCH (21:23)
[2018-03-23] MEDS: BUDESONIDE INH.SOLN 0.5mg/2ml NEB AEROSOL SCH (21:23)
[2018-03-24] MEDS: 1/2 NS 1,000 ML IV SCH (04:27)
[2018-03-24] MEDS ORDERED: BUDESONIDE INH.SOLN 0.5mg/2ml NEB AEROSOL SCH (07:00)
[2018-03-24] MEDS ORDERED: ARFORMOTEROL NEB 15mcg/2ml AEROSOL SCH (07:00)
[2018-03-24] MEDS ORDERED: ASPIRIN 81 MG CHEWABLE TABLET PO SCH (09:00)
[2018-03-24] MEDS: ARFORMOTEROL NEB 15mcg/2ml AEROSOL SCH (09:00)
[2018-03-24] MEDS: BUDESONIDE INH.SOLN 0.5mg/2ml NEB AEROSOL SCH (09:00)
--- NOTE | 2018-03-24 09:34 | Cardiology Consult Note ---
History of Present Illness Consult date: 03/23/18 Requesting physician: Gladys Gudino Chief complaint: fatigue, diarrhea History of present illness: Pippa is a 67 year old female who saw Deena Schwarz APRN to investigate intermittent diarrhea, fatigue, tiredness and anorexia for the last month. She has lost about 8 lbs in the last month. She has noted some labored breathing with activity, but not SOA per se. An EKG was done in the office, and this was abnormal so she was referred to the ED. There, troponin was mildly elevated at 0.146. D-dimer was 670 and a CTA was done, which was neg for PE. Dr. Mcpherson was consulted from the ED and felt that the troponinemia was secondary to LVH. She also had leukocytosis with a WBC of 18.6 and mild transaminitis. The hospitalist service was contacted and the patient was admitted to observation status. She has a history of asthma and reportedly saw Dr. Donohue last week for "shadows on my lungs" and her Advair dose was reduced due to side effects of headaches and intermittent visual loss, both of which have resolved. She denies recent illness, fever chills, dizziness/near-syncope, cough, sore throat, chest pain, palpitations, dyspnea, abdominal pain, N/V/D, or dysuria. Review of Systems - Constitutional Constitutional: Present: fatigue, weight loss. Absent: chills, fever(s) - EENMT Eyes: Absent: change in vision Balance: Absent: vertigo Mouth/Throat: Absent: sore throat - Cardiovascular Cardiovascular: Present: dyspnea on exertion. Absent: chest pain, palpitations , syncope, edema, heart murmur Rhythm: Absent: abnormal rhythm Vascular: Absent: pedal edema - Respiratory Respiratory: Present: dyspnea on exertion. Absent: cough - Gastrointestinal Gastrointestinal: Absent: abdominal pain, diarrhea, nausea, vomiting - Genitourinary Genitourinary: Absent: dysuria - Integumentary/Breasts Integumentary: Absent: rash - Neurological Neurological: Absent: dizziness - Endocrine Endocrine: Absent: palpitations [facility] Patient Stated Medical History Heart Murmur Yes Clinic Medical History (Last Updated 09/30/17 @ 08:50 by PARKER Jeffries) Allergic asthma (Chronic Medical) Basal cell carcinoma of back (Chronic Medical) Breast CA (Chronic Medical) Hx of tamoxifen therapy (Chronic Medical) Surgical History: T&A-195. Mastectomy on L-1995. D&C x 2. Mastectomy on R- 2004. Tamoxifen for 5 years. R was removed later due to another breast cancer in 2010. (No chemo after Family History: Family History (Last Updated 09/30/17 @ 08:53 by PARKER Jeffries) Father , 78 Myelofibrosis Mother , 82 Polycythemia vera Maternal Uncle Rectal cancer Maternal Aunt Cancer of blood vessel Family History Updates: Both of her parents of "blood cancer". No family history of heart disease. 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 Medications Home Medications Medication Instructions Recorded Confirmed Type Albuterol Sulfate [Proventil Hfa 6.7 gm IH PRN #0 04/25/10 03/23/18 History 90mcg] Advair Diskus (Fluticasone 250 1 puff INH BID 03/23/18 03/23/18 History mcg-salmeterol 50 mcg)dose powdr for inhalation Montelukast Sodium [Singulair] 10 mg PO HS 03/23/18 03/23/18 History Aspirin Chewable [ASA] 81 mg PO DAILY tab.chew 03/24/18 Rx Allergies Allergy/AdvReac Type Severity Reaction Status Date / Time Penicillins Allergy Mild RASH Verified 03/23/18 13:29 Sulfa (Sulfonamide Allergy Mild RASH Verified 03/23/18 13:29 Antibiotics) gatifloxacin Allergy Unknown Verified 03/23/18 13:29 FLU SHOTS Allergy Unknown welts Uncoded 03/23/18 13:29 Exam Vital signs: Temperature 98.7 F 03/24/18 08:00 Pulse Rate 86 03/24/18 08:00 Respiratory Rate 20 03/24/18 09:00 Blood Pressure 138/65 03/24/18 08:00 Pulse Oximetry 97 03/24/18 09:00 - Constitutional no acute distress, well nourished, cooperative - Routine HEENT Exam Head: Present: normocephalic ENT: Present: mucous membranes moist - Routine Neck Exam Absent: JVD, carotid bruit - Routine Chest/Breast/Axilla Exam Chest wall: Absent: tenderness - Routine Respiratory Exam Present: CTA bilaterally. Absent: dyspnea, rales, wheezes - Routine Cardiovascular Exam Present: RRR, no murmur - Routine Abdominal Exam Present: soft, non tender - Routine Extremities Exam Present: no edema, pulses intact - Routine Skin Exam Present: intact, dry, warm - Routine Neurological Exam Present: alert, oriented X3 - Routine Psychiatric Exam Present: normal affect, normal thought process Results 03/24/18 06:24 03/24/18 06:24 Cardiac Enzymes 03/23/18 03/23/18 03/24/18 Range/Units 14:20 18:52 00:12 AST 56 H (14-36) U/L Troponin I 0.146 H 0.222 H 0.236 H (0-0.12) ng/ml 03/24/18 Range/Units 06:24 AST (14-36) U/L Troponin I 0.232 H (0-0.12) ng/ml CBC 03/23/18 03/24/18 Range/Units 14:20 06:24 WBC 18.6 H 19.8 H (4.5-11.0) T/MM3 RBC 4.91 4.61 (4.00-5.20) M/MM3 Hgb 13.6 12.5 (12-16) GM/DL Hct 42.8 39.3 (36-46) % Plt Count 338 321 (130-400) T/MM3 Neut # (Auto) Not performed Lymph # (Auto) Not performed [place] # (Auto) Not performed Eos # (Auto) Not performed Baso # (Auto) Not performed Comprehensive Metabolic Panel 03/23/18 03/24/18 Range/Units 14:20 06:24 Sodium 143 141 (136-146) MEQ/L Potassium 4.4 4.4 (3.6-5) MEQ/L Chloride 103 108 H (98-107) MEQ/L Carbon Dioxide 29 24 (22-30) MEQ/L BUN 11.0 11.0 (7-17) MG/DL Creatinine 0.9 0.8 (0.7-1.2) mg/dL Glucose 107 94 (65-110) MG/DL Calcium 9.5 8.9 (8.4-10.2) MG/DL AST 56 H (14-36) U/L ALT 38 H (1-35) U/L Alkaline Phosphatase 422 H (38-126) U/L Total Protein 9.2 H (6.3-8.2) g/dL Albumin 4.3 (3.5-5.0) g/dL Intake and Output 03/23/18 03/24/18 03/24/18 22:59 06:59 14:59 Intake Total 800 / 800 896.667 / 896.667 430 / 430 Output Total 400 / 400 350 / 350 Balance 800 / 800 496.667 / 496.667 80 / 80 Intake: IV 500 / 500 896.667 / 896.667 1/2 Ns 1,000 ml @ 100 mls/hr IV 896.667 / 896.667 .Q10H ANTONIO Rx#:[id number] NS 500ml 500 ml @ 999.9 mls/hr 500 / 500 IV .Q30M ONE Rx#:[id number] Oral 300 / 300 430 / 430 Output: Urine 400 / 400 350 / 350 Other: Urine Appearance Clear Clear Urine Color Yellow Pale Yellow Urine Odor Normal Normal # Voids 1 Weight 136 lb 14.513 oz 141 lb 15.643 oz Patient Weight 03/25/18 06:59 Weight 141 lb 15.643 oz - Imaging and Cardiology Imaging & Cardiology Narrative: Date of Exam: 03/23/18 Ordering Provider: Warren Lawler MD Type of Exam(s): CT angio pulm emboli Reason for Exam(s): weakness shortness of air elevated d-dimer Indication: weakness shortness of air elevated d-dimer PROCEDURE: CT angio pulm emboli: Encounter: Initial Comparison: None. Technique: Following rapid administration of intravenous contrast, multiple contiguous helical axial slices were obtained from the level of the diaphragm to the level the thoracic inlet. This volumetric data set then served as the basis for further 2 dimensional MIP reconstructions in sagittal and coronal planes. Automated Exposure Control and Iterative Reconstruction dose reducing techniques were utilized. FINDINGS: There is fairly extensive somewhat patchy predominant interstitial appearing parenchymal opacities with diffuse distribution. There is some thickening of the bronchi with segmental occlusions suggesting inspissated mucus and probable bronchitis and there is also some bronchiectasis in the lung bases. No definite organizing fibrosis or honeycombing. The lungs are mildly emphysematous with some mosaic air trapping particularly in the lung bases. There is bilateral hilar prominence without definite jeancarlos pathologic enlargement which could be reactive. There is no pulmonary embolism. The trachea and mainstem bronchi are patent. There is no consolidation, pleural effusion, or pneumothorax. There are no masses or nodules seen in the lung parenchyma. There is no axillary or mediastinal lymphadenopathy. The heart size is normal. There is no pericardial effusion. The visualized portions of the thoracic aorta and major branch vessels of the aortic arch fills with contrast homogenously and are unremarkable. The thyroid gland enhances homogenously and is unremarkable. The visualized portions of the upper abdominal structures are grossly unremarkable. The visualized bones are unremarkable. IMPRESSION: Scattered patchy air trapping with nonspecific interstitial opacities and bronchial wall thickening predominantly in the lung bases with segmental occlusion suggesting inspissated mucus. Bilateral hilar prominence which could be reactive without definite pathologic enlargement. No definite pulmonary embolus. Exam was interpreted using CTA criteria adapted to NASCET criteria. . 03/24/18 09:37 03/25/18 17:21 Date of Exam: 03/24/18 Type of Exam(s): US echo doppler complete DATE OF PROCEDURE 03/24/2018 PROCEDURE PERFORMED Transthoracic echocardiography, M-mode assessment, full color spectral Doppler assessment. FINDINGS 1. LEFT VENTRICLE. Left ventricle appears normal in size. There is mild concentric left ventricular hypertrophy noted. Normal left ventricular systolic function noted. Estimated left ventricular ejection fraction is 60-65% . Interventricular septum appears thickened more so than the posterior wall. Left ventricular diastolic function appears normal for age. No regional wall motion abnormality noted. 2. RIGHT VENTRICLE. Right ventricle appears normal in size. Normal right ventricular wall thickness noted. Normal right ventricular systolic function noted. 3. RIGHT ATRIUM. Right atrium appears normal in size. 4. LEFT ATRIUM. Left atrium appears normal in size. 5. MITRAL VALVE. Mitral valve appears structurally normal; only trace mitral regurgitation noted. No significant mitral stenosis noted. 6. AORTIC VALVE. Aortic valve appears trileaflet. No significant aortic stenosis noted. Only trace aortic regurgitation noted. 7. TRICUSPID VALVE. Tricuspid valve appears normal in structure; only trace tricuspid regurgitation noted. 8. PULMONIC VALVE. Pulmonic valve poorly visualized on today's study. There is only trivial pulmonic regurgitation noted. 9. INFERIOR VENA CAVA. Inferior vena cava appears normal in size. There is normal respirophasic variation noted. 10. PULMONARY ARTERY. Estimated pulmonary artery systolic pressure 30-35 mmHg. CONCLUSION 1. Normal left ventricular systolic function, estimated left ventricular ejection fraction of 60-65%. 2. Normal right ventricular systolic function. 3. Trivial mitral regurgitation noted. 4. Trace aortic regurgitation noted. 5. Trace tricuspid regurgitation noted. EKG interpretations - EKG EKG results cardiology: sinus rhythm - Blocks, axis, hypertrophy, ST abn QRS axis and voltage: left axis deviation (-30 to -90) Chamber hypertrophy or enlargement: left ventricular hypertrophy or enlargement (LVE) Repolarization changes or abnormalities: nonspecific abnormality, ST segment, and/or T wave Assessment and Plan - Assessment and Plan (1) Elevated troponin I level Status: Acute - Trending down - Not consistent with ischemic, likely due to LVH, unknown cause of LVH - D dimer 670, CTA negative for PE - Plan outpatient stress test in the future after current illness resolved (2) Left ventricular hypertrophy Status: Acute Septal hypertrophy per echo, LVH per EKG, unknown cause - No cardiomegaly on CTA (3) Fatigue Status: Acute (4) Asthma Status: Chronic Stable on Albuterol, Advair and Singulair - sees Dr. Donohue (5) HX: breast cancer Status: Chronic Bilateral mastectomies, no radiation or chemotherapy taken. - Assessment and Plan Elevated troponin I level Current visit: Yes Status: Acute - Trending down - Not consistent with ischemic, likely due to LVH, unknown cause of LVH - D dimer 670, CTA negative for PE - Plan outpatient stress test in the future after current illness resolved Left ventricular hypertrophy Current visit: Yes Status: Acute - Septal hypertrophy per echo, LVH per EKG, unknown cause - No cardiomegaly on CTA Fatigue Current visit: Yes Status: Acute Asthma Current visit: Yes Status: Chronic - Stable on Albuterol, Advair and Singulair - seeaddi Donohue HX: breast cancer Current visit: Yes Status: Chronic - Bilateral mastectomies, no radiation or chemotherapy taken. Thank you for allowing us to participate in this patient's care. Hospital Course Summary Disclaimer: The visit summary below is not to be considered part of the above Progress Note. Hospital Course: 03/23 Admit, obs status Trend trop; monitor tele. WBC elevated; shift shows predominantly eosinophils. No clear signs of bacterial illness. If pt has diarrhea will send for GI panel. Check UA for completeness. IVF: 1/2 NS at 100 ml/hr. Albuterol PRN. Consider further w/u for transaminitis/eosinophilia. TSH was normal at 1.38.
[2018-03-24 12:32] VITALS: BP 139/74; RESP 16; TEMP 97.5; O2SAT 92
--- NOTE | 2018-03-24 14:57 | Progress Note ---
- Date 03/24/18 Subjective: F/U: Elevated troponin, LVH on EKG, Leukocytosis Doing well today. Had formed stool - not able to send sample to lab. No ab pain or nausea. Breathing well-not feeling SOA or congested. No pain with breathing or cough. Ambulating well. Feels ready to go home. Objective Vital signs: Temperature 97.5 F 03/24/18 12:32 Pulse Rate 74 03/24/18 12:32 Respiratory Rate 16 03/24/18 12:32 Blood Pressure 139/74 03/24/18 12:32 Pulse Oximetry 92 03/24/18 12:32 Height/Weight/BMI: Height 1.83 m Weight 64.4 kg Body Mass Index 18.6 - Constitutional Present: no acute distress, well nourished, well developed, average body habitus , cooperative - Routine HEENT Exam Head: Present: normocephalic, atraumatic Eye: Present: EOMI, PERRL, normal accommodation. Absent: conjunctival icterus ENT: Present: mucous membranes moist - Routine Respiratory Exam Present: decreased breath sounds. Absent: respiratory distress, wheezes, crackles - Routine Cardiovascular Exam Present: RRR, no murmur - Routine Abdominal Exam Present: soft, normoactive bowel sounds, non distended, non tender - Routine Extremities Exam Present: no edema, pulses intact. Absent: cyanosis, clubbing - Routine Musculoskeletal Exam Musculoskeletal: Present: no clubbing or cyanosis, normal strength - Routine Skin Exam Present: dry, warm - Routine Neurological Exam Present: alert, oriented X3, CN II-XII intact, moving all extremities, vision grossly intact, hearing grossly intact, normal speech. Absent: motor deficit, altered mental status - Routine Psychiatric Exam Present: normal affect, normal thought process, cooperative Results - Labs CBC & Chem 7: 03/24/18 06:24 03/24/18 06:24 Assessment and Plan (1) Elevated troponin I level Current visit: Yes Status: Acute Assessment and Plan: Assessment Elevated troponin - no evidence of AMI LVH on EKG Leukocytosis, POA Transaminitis Leukocytosis/eosinophilia Anorexia, weight loss Diarrhea Fatigue Hx of breast ca Allergic asthma Plan Doing well today. Breathing well. No chest pain. Ambulating well. Will discharge to home. Continue ASA 81mg daily for CV protection. Recommend fiber in diet and yogurt to help bowel function. Discussed with patient about trial of Prednisone due to eosinophilia, but elected to hold at this time. Will follow up with Jennifer Franco in 1 week. Recommend rechecking CBC at that time due to leukocytosis/eosinophilia and CMP due to elevated LFT. BETTINA, c-ANCA and p-ANCA pending at discharge. F/U with Dr Mcpherson in about 2 week for further cardiac evaluation and stress testing. See orders for details. DVT Prophylaxis: SCD's Resuscitation Status: Full Code - Physician Narrative Physician: Dutch Boo MD Narrative: Date: 03/24/18 Time: 1454 Hospital Course Summary Disclaimer: The visit summary below is not to be considered part of the above Progress Note. Hospital Course: 03/23/18 Admit, obs status Trend trop; monitor tele. WBC elevated; shift shows predominantly eosinophils. No clear signs of bacterial illness. If pt has diarrhea will send for GI panel. Check UA for completeness. IVF: 1/2 NS at 100 ml/hr. Albuterol PRN. Consider further w/u for transaminitis/eosinophilia. TSH was normal at 1.38. 03/24/18 Doing well today. Breathing well. No chest pain. Ambulating well. Will discharge to home. Continue ASA 81mg daily for CV protection. Recommend fiber in diet and yogurt to help bowel function. Discussed with patient about trial of Prednisone due to eosinophilia, but elected to hold at this time. Will follow up with Jennifer Franco in 1 week Recommend rechecking CBC at that time due to leukocytosis/eosinophilia and CMP due to elevated LFT. BETTINA, c-ANCA and p-ANCA pending at discharge. F/U with Dr Mcpherson in about 2 week for further cardiac evaluation and stress testing. See orders for details.
--- NOTE | 2018-03-24 15:18 | Echocardiogram ---
DATE OF PROCEDURE 03/24/2018 PROCEDURE PERFORMED Transthoracic echocardiography, M-mode assessment, full color spectral Doppler assessment. FINDINGS 1. LEFT VENTRICLE. Left ventricle appears normal in size. There is mild concentric left ventricular hypertrophy noted. Normal left ventricular systolic function noted. Estimated left ventricular ejection fraction is 60-65% . Interventricular septum appears thickened more so than the posterior wall. Left ventricular diastolic function appears normal for age. No regional wall motion abnormality noted. 2. RIGHT VENTRICLE. Right ventricle appears normal in size. Normal right ventricular wall thickness noted. Normal right ventricular systolic function noted. 3. RIGHT ATRIUM. Right atrium appears normal in size. 4. LEFT ATRIUM. Left atrium appears normal in size. 5. MITRAL VALVE. Mitral valve appears structurally normal; only trace mitral regurgitation noted. No significant mitral stenosis noted. 6. AORTIC VALVE. Aortic valve appears trileaflet. No significant aortic stenosis noted. Only trace aortic regurgitation noted. 7. TRICUSPID VALVE. Tricuspid valve appears normal in structure; only trace tricuspid regurgitation noted. 8. PULMONIC VALVE. Pulmonic valve poorly visualized on today's study. There is only trivial pulmonic regurgitation noted. 9. INFERIOR VENA CAVA. Inferior vena cava appears normal in size. There is normal respirophasic variation noted. 10. PULMONARY ARTERY. Estimated pulmonary artery systolic pressure 30-35 mmHg. CONCLUSION 1. Normal left ventricular systolic function, estimated left ventricular ejection fraction of 60-65%. 2. Normal right ventricular systolic function. 3. Trivial mitral regurgitation noted. 4. Trace aortic regurgitation noted. 5. Trace tricuspid regurgitation noted. [facility]
[2018-03-24 15:29] VITALS: PULSE 83
--- NOTE | 2018-03-24 15:33 | Discharge Summary ---
Discharge Information Date of admission: 03/23/18 17:56 Anticipated date of discharge: 03/24/18 Attending Physician: Dutch Boo MD Primary care physician: CHACHO Mae Consults: Physician Consult : Isreal Mcpherson Reason For Exam: Elevated troponin - Discharge Diagnosis (1) Elevated troponin I level Status: Acute Discharge diagnosis Elevated troponin - no evidence of AMI Associated conditions and complications LVH on EKG Leukocytosis, POA Transaminitis Leukocytosis/eosinophilia Anorexia, weight loss Diarrhea Fatigue Hx of breast cancer Allergic asthma - Procedures Procedures: Date of Exam: 03/24/18 PROCEDURE PERFORMED Transthoracic echocardiography, M-mode assessment, full color spectral Doppler assessment. FINDINGS 1. LEFT VENTRICLE. Left ventricle appears normal in size. There is mild concentric left ventricular hypertrophy noted. Normal left ventricular systolic function noted. Estimated left ventricular ejection fraction is 60-65% . Interventricular septum appears thickened more so than the posterior wall. Left ventricular diastolic function appears normal for age. No regional wall motion abnormality noted. 2. RIGHT VENTRICLE. Right ventricle appears normal in size. Normal right ventricular wall thickness noted. Normal right ventricular systolic function noted. 3. RIGHT ATRIUM. Right atrium appears normal in size. 4. LEFT ATRIUM. Left atrium appears normal in size. 5. MITRAL VALVE. Mitral valve appears structurally normal; only trace mitral regurgitation noted. No significant mitral stenosis noted. 6. AORTIC VALVE. Aortic valve appears trileaflet. No significant aortic stenosis noted. Only trace aortic regurgitation noted. 7. TRICUSPID VALVE. Tricuspid valve appears normal in structure; only trace tricuspid regurgitation noted. 8. PULMONIC VALVE. Pulmonic valve poorly visualized on today's study. There is only trivial pulmonic regurgitation noted. 9. INFERIOR VENA CAVA. Inferior vena cava appears normal in size. There is normal respirophasic variation noted. 10. PULMONARY ARTERY. Estimated pulmonary artery systolic pressure 30-35 mmHg. CONCLUSION 1. Normal left ventricular systolic function, estimated left ventricular ejection fraction of 60-65%. 2. Normal right ventricular systolic function. 3. Trivial mitral regurgitation noted. 4. Trace aortic regurgitation noted. 5. Trace tricuspid regurgitation noted. - Laboratory Labs: Laboratory Tests 03/23/18 14:20 WBC 18.6 H Hgb 13.6 Hct 42.8 MCV 87.2 MCH 27.7 Plt Count 338 Neutrophils % (Manual) 32.0 L Band Neutrophils % 1.0 Lymphocytes % (Manual) 16.0 L Monocytes % (Manual) 7.0 Eosinophils % (Manual) 44.0 H Laboratory Tests 03/23/18 14:20 Sodium 143 Potassium 4.4 Chloride 103 Carbon Dioxide 29 Anion Gap 11 BUN 11.0 Creatinine 0.9 GFR Calculation 62 BUN/Creatinine Ratio 12 Glucose 107 Calculated Osmolality 274 Calcium 9.5 Magnesium 2.3 Total Bilirubin 0.40 AST 56 H ALT 38 H Alkaline Phosphatase 422 H Troponin I 0.146 H NT-Pro-B Natriuret Pep 196 H Total Protein 9.2 H Albumin 4.3 Globulin 4.9 H Albumin/Globulin Ratio 0.9 L TSH 1.38 Laboratory Tests 03/23/18 14:20 C-Reactive Protein 23.9 H PENDING Lab 03/24/18 00:12 Anti-Nuclear Antibody Pending c-ANCA Pending p-ANCA Pending 03/24/18 06:24 03/24/18 06:24 - Radiology Radiology: Date of Exam: 03/23/18 Type of Exam: CT angio pulm emboli FINDINGS: There is fairly extensive somewhat patchy predominant interstitial appearing parenchymal opacities with diffuse distribution. There is some thickening of the bronchi with segmental occlusions suggesting inspissated mucus and probable bronchitis and there is also some bronchiectasis in the lung bases. No definite organizing fibrosis or honeycombing. The lungs are mildly emphysematous with some mosaic air trapping particularly in the lung bases. There is bilateral hilar prominence without definite jeancarlos pathologic enlargement which could be reactive. There is no pulmonary embolism. The trachea and mainstem bronchi are patent. There is no consolidation, pleural effusion, or pneumothorax. There are no masses or nodules seen in the lung parenchyma. There is no axillary or mediastinal lymphadenopathy. The heart size is normal. There is no pericardial effusion. The visualized portions of the thoracic aorta and major branch vessels of the aortic arch fills with contrast homogenously and are unremarkable. The thyroid gland enhances homogenously and is unremarkable. The visualized portions of the upper abdominal structures are grossly unremarkable. The visualized bones are unremarkable. IMPRESSION: Scattered patchy air trapping with nonspecific interstitial opacities and bronchial wall thickening predominantly in the lung bases with segmental occlusion suggesting inspissated mucus. Bilateral hilar prominence which could be reactive without definite pathologic enlargement. No definite pulmonary embolus. Exam was interpreted using CTA criteria adapted to NASCET criteria. History of Present Illness HPI: Pippa Cedillo is a 67 y/o female who saw Deena Robbinsler at [facility] today to investigate intermittent diarrhea, fatigue, and tiredness for the last month. She tends to have more diarrhea when she's anxious and her reports that she has been under mores stress/been more anxious lately. She also notes anorexia, without n/v. She denies seeing jeancarlos red or black colored stools. She denies dizziness/near-syncope. She denies bloating or cramping or abdominal pain. She has lost about 8 lbs in the last month. Along with this she's experienced increased fatigue - i.e. after she folds a load of laundry she needs to go rest. She has noted some labored breathing with activity, but not SOA per se. She saw Dr. Donohue last week for "shadows on my lungs" and had her Advair dose reduced d/t side effects of headaches and intermittent visual loss, both of which have resolved. Her also mentioned that she sometimes c/o jaw pain. Her allergy symptoms are under control. She denies chest pain, palpitations, urinary pain (though notes concentrated urine today), rashes, infections, recent travel, known exposures. An EKG was done in the office, and this was abnormal so she was referred to the ED. There, trop was mildly elevated at 0.146. D-dimer was 670 and a CTA was done, which was neg for PE. Dr. Mcpherson was consulted from the ED and felt that the troponinemia was secondary to LVH. The patient also had leukocytosis with a WBC of 18.6 and mild transaminitis. The hospitalist service was contacted and the patient was admitted to obs status. For complete details of the H&P refer to that document. Objective Vital signs: Temperature 97.5 F 03/24/18 12:32 Pulse Rate 83 03/24/18 15:21 Respiratory Rate 16 03/24/18 12:32 Blood Pressure 139/74 03/24/18 12:32 Pulse Oximetry 92 03/24/18 12:32 Height/Weight/BMI: Height 1.83 m Weight 64.4 kg Body Mass Index 18.6 Hospital Course This is a general summary of the patient's hospital course. For more details refer to the complete medical record. Hospital course: 03/23/18 Admit, obs status Trend trop; monitor tele. WBC elevated; shift shows predominantly eosinophils. No clear signs of bacterial illness. If pt has diarrhea will send for GI panel. Check UA for completeness. IVF: 1/2 NS at 100 ml/hr. Albuterol PRN. Consider further w/u for transaminitis/eosinophilia. TSH was normal at 1.38. 03/24/18 Doing well today. Breathing well. No chest pain. Ambulating well. Will discharge to home. Continue ASA 81mg daily for CV protection. Recommend fiber in diet and yogurt to help bowel function. Discussed with patient about trial of Prednisone due to eosinophilia, but elected to hold at this time. Will follow up with Jennifer Franco in 1 week Recommend rechecking CBC at that time due to leukocytosis/eosinophilia and CMP due to elevated LFT. BETTINA, c-ANCA and p-ANCA pending at discharge. F/U with Dr Mcpherson in about 2 week for further cardiac evaluation and stress testing. See orders for details. Time spent with patient: discharge greater than 30 minutes Resuscitation Status: Full Code Discharge Plan - Discharge Disposition Discharge Date: 03/24/18 Disposition: Discharged Home, Self-Care *Condition: Stable Reason For Visit (Visit label in EMR): Elevated Troponin - Discharge Medications *Discharge Medications: New Aspirin Chewable [ASA] 81 mg PO DAILY tab.chew Continue Albuterol Sulfate [Proventil Hfa 90mcg] 6.7 gm IH PRN #0 Montelukast Sodium [Singulair] 10 mg PO HS Advair Diskus (Fluticasone 250 mcg-salmeterol 50 mcg)dose powdr for inhalation 1 puff INH BID - Discharge Packet/Instructions *Diet: Regular diet. Would recommend yogurt and OTC fiber product to help bowel function. *Activity: As tolerated. *Pain Management/Treatment: Continue prior pain medication. *Wound Care: n/a Additional Instructions: Would recommend yogurt and OTC fiber product to help bowel function. *Expected Signs/Symptoms: Stability of breathing. Improvement of bowels. *Notify Physician if: Temp >100.4. Increased shortness or breath, wheezing, cough, or pain with breathing. Watch for blood in stool or tarry dark stools as could be a sign of bleeding from ASA use. *During Business Hours Contact: Elidia Franco. *After Business Hours Contact: Call [facility] [place] have [place] care provider contacted. *Pending Lab/Results: Follow up w/your PCP - Referrals/Follow Up *Referrals/Follow Up: Jennifer Franco PA [Primary Care Provider] - 1 Week (Hospital follow up. Recommend checking CBC due to leukocytosis and eosinophilia and CMP due to elevated liver enzymes. ) Isreal Mcpherson MD [Physician] - 2 Weeks (Will see in clinic and set up for outpaitient cardiac stress testing. ) - Patient Handouts - Dismissal Complete Discharge Instructions are:: Complete Physician Narrative - Narrative Physician: Dutch Boo MD Attestation Narrative: Date: 03/24/18 Time: 1530 I have independently interviewed and examined patient prior to discharge. See my progress note for details. Medically stable for discharge to home.
== END 2018-03-24 15:58 | disposition home or self-care (01) ==
LOC: SRG 15:32 → ED 15:32 → SRG 17:55 → SUATTDRO 17:56
PROVIDERS: ADMIT Internal Medicine; ATTEND Hospitalist